=== PATIENT | male | born 1995 | race Caucasian/White ===

== ENCOUNTER 2017-08-29 22:39 | Emergency (ER) | payer MEDICAID ==
[~2017-08-29] VITALS: Ht 180.3 cm; Wt 88.6 kg
[2017-08-29 23:20] VITALS: BP 150/85
== END 2017-08-29 23:26 | disposition home or self-care (01) ==
LOC: ER 22:39
DX: S00.31XA Abrasion of nose, initial encounter (principal); F10.129 Alcohol abuse with intoxication, unspecified; F12.10 Cannabis abuse, uncomplicated; V89.2XXA Person injured in unspecified motor-vehicle accident, traffic, initial encounter; Y93.89 Activity, other specified; Y92.89 Other specified places as the place of occurrence of the external cause; Y99.8 Other external cause status
CPT/HCPCS: 99283